=== PATIENT | female | born 1955 | race Hispanic/Latino ===

== ENCOUNTER 2019-07-26 18:26 | Emergency (ER) | payer SELFPAY ==
[~2019-07-26] VITALS: Ht 154.9 cm; Wt 74.8 kg
[~2019-07-26 18:26] MED LIST: LISINOPRIL5 MG
[2019-07-26] MEDS ORDERED: TRAMADOL HCL 50 MG TAB PO NR (19:15)
--- NOTE | 2019-07-26 19:39 | Diagnostic Imaging Report ---
Right complete knee. CPT CODE: 99865. INDICATION: Fall COMPARISON: None FINDINGS: No evidence of acute fracture or dislocation. Mild tricompartmental osteoarthritis with prominence of the tibial spines. No joint effusion. There is infrapatellar/anterior tibial soft tissue swelling. No radiopaque foreign bodies in the soft tissues. IMPRESSION: No acute traumatic pathology. Mild osteoarthritis. Signed by: Dr. Dorcas Gonzalez MD on 07/26/2019 7:35 PM
[2019-07-26 20:09] VITALS: BP 157/93
== END 2019-07-26 20:09 | disposition home or self-care (01) ==
LOC: ER 18:26
DX: S80.01XA Contusion of right knee, initial encounter (principal); S76.111A Strain of right quadriceps muscle, fascia and tendon, initial encounter; W01.0XXA Fall on same level from slipping, tripping and stumbling without subsequent striking against object, initial encounter; Y93.89 Activity, other specified; Y92.019 Unspecified place in single-family (private) house as the place of occurrence of the external cause
CPT/HCPCS: 93971; 99283

== ENCOUNTER 2019-08-21 00:09 | Emergency (ER) | payer OTHER ==
[~2019-08-21] VITALS: Ht 154.9 cm; Wt 74.8 kg
--- OUTSIDE RECORDS SUMMARY | 2019-08-21 00:12 | XMS REPORT ---
Author Author [facility] Address Unknown Phone Unavailable Care Team Providers Care Salesperson Furs Name Role Phone Catherine REAVES Unavailable Unavailable Problems This patient has no known problems. Allergies, Adverse Reactions, Alerts This patient has no known allergies or adverse reactions. Medications This patient has no known medications. Results Test Description Test Time Test Comments Text Results Atomic Results Result Comments KNEE RIGHT THREE VIEWS 2019-07-26 19:34:00 [place] [id number] Patient Name: PARISH BRADSHAW MR #: [id number] : 1955 Age/Sex: 63/F Req #: [id number] [facility] [place] Physician: Ordered by: LEAH REAVES MD Report #: [id number] Location: ER Room/Bed: Procedure: [id number] DX/KNEE RIGHT THREE VIEWS Exam Date: 07/26/19 Exam Time: 1924 REPORT STATUS: Signed Right complete knee. CPT CODE: 17691. INDICATION: Fall COMPARISON: None FINDINGS: No evidence of acute fracture or dislocation. Mild tricompartmental osteoarthritis with prominence of the tibial spines. No joint effusion. There is infrapatellar/anterior tibial soft tissue swelling. No radiopaque foreign bodies in the soft tissues. IMPRESSION: No acute traumatic pathology. Mild osteoarthritis. Signed by: Dr. Danie Gonzalez MD on 07/26/2019 7:35 PM Dictated By: DANIE GONZALEZ MD 34 Transcribed By: MALIK on 07/26/191934 COPY TO: LEAH REAVES MD SCR MAMM BILATERAL EAMON CAD DIGITAL 2018-08-06 16:38:50 - SCR MAMM BILATERAL EAMON CAD DIGITALBILATERAL DIGITAL SCREENING MAMMOGRAM 3D/2D WITH CAD: 08/05/2018CLINICAL: Asymptomatic. Digital breast tomosynthesis was performed in addition to routine CC and MLO views. Current mammographic images were evaluated by either a eOriginal M-Vu or a On-Ramp Wireless ImageChecker CAD (computer aided detection system). Comparison is made to exams dated 01/21/2017 mammogram, 11/14 mammogram - [facility], and 08/21/2014 mammogram - [facility]. The tissue of both breasts is heterogeneously dense. This may lower the sensitivity of mammography. No suspicious mass, architectural distortion, malignant type calcification, or lymph node abnormality detected. Breast architecture is stable compared to prior exams.IMPRESSION: NEGATIVEThere is no mammographic evidence of malignancy. Resume annual screening mammography in one year. Jessica ceron/stacy:08/06/2018 16:38:50 Pile Operator: Jeannette MACKEY, [facility]: BIRADS 1-2 Normal Mammogram BI-RADS: 1 Negative
[2019-08-21] MEDS ORDERED: MORPHINE SULFATE INJ 4 MG/ML INJ 1ML IV PRN (01:00)
--- NOTE | 2019-08-21 01:18 | NUR ---
ER TO BS TO PERFORM U/S TO R/O DVT
--- NOTE | 2019-08-21 01:40 | Diagnostic Imaging Report ---
Exam: Right foot radiographs-3 views; right ankle radiographs-3 views History: Pain. Comparison: None. Findings: Diffuse soft tissue edema in the ankle and foot. This possible mild irregularity of the medial talus and the medial malleolus at the ligament attachment. No evidence of acute displaced fracture. The ankle mortise is preserved. Plantar calcaneal spur. Impression: Diffuse soft tissue edema in the ankle and foot. Possible irregularity in the medial talus and medial malleolus at the ligamentous attachment could reflect age indeterminate trauma/avulsion injury. No definite acute displaced fracture. Suggest follow-up radiograph in 7-10 days. Signed by: Dr. Ana Paula Monzon MD on 08/21/2019 1:37 AM
[2019-08-21] MEDS ORDERED: MORPHINE SULFATE INJ 4 MG/ML INJ 1ML IM PRN (02:45)
--- NOTE | 2019-08-21 02:49 | NUR ---
lead medical technologist at bedside
== END 2019-08-21 04:00 | disposition home or self-care (01) ==
LOC: ER 00:09
DX: M79.661 Pain in right lower leg (principal); I83.891 Varicose veins of right lower extremity with other complications; I83.811 Varicose veins of right lower extremity with pain; S93.421A Sprain of deltoid ligament of right ankle, initial encounter; I87.1 Compression of vein; I87.2 Venous insufficiency (chronic) (peripheral)
CPT/HCPCS: 73610; 73630; 93971; 99283; J2270

== ENCOUNTER → 2024-12-07 | Outpatient (REF) | payer MEDICARE | LOC: RAD 14:39 | PROVIDERS: ATTEND Internal Medicine | DX: M25.561 Pain in right knee (principal) ==

== ENCOUNTER → 2024-12-23 | Outpatient (REF) | payer MEDICARE | LOC: MAMMO 11:44 | PROVIDERS: ATTEND Internal Medicine | DX: M85.88 Other specified disorders of bone density and structure, other site (principal) | CPT/HCPCS: 77080 ==

== ENCOUNTER → 2025-01-11 | Outpatient (REF) | payer MEDICARE | LOC: MAMMO 01-04 07:59 | PROVIDERS: ATTEND Internal Medicine | DX: N63.10 Unspecified lump in the right breast, unspecified quadrant (principal); N63.20 Unspecified lump in the left breast, unspecified quadrant | CPT/HCPCS: 76604; 77066 ==